=== PATIENT | female | born 1995 | race Caucasian/White ===

== ENCOUNTER 2023-12-09 08:05 | Emergency (ER) | payer MEDICAID ==
[~2023-12-09] VITALS: Ht 165.1 cm; Wt 54.4 kg
[2023-12-09 08:11] VITALS: BP 150/105; PULSE 115; RESP 20; TEMP 97.8; O2SAT 98
[2023-12-09 09:29] VITALS: BP 144/98; PULSE 99; RESP 20; TEMP 97.8; O2SAT 98
== END 2023-12-09 09:29 | disposition home or self-care (01) ==
LOC: MED 08:05
DX: M79.606 Pain in leg, unspecified (principal); R00.0 Tachycardia, unspecified; Z86.59 Personal history of other mental and behavioral disorders
CPT/HCPCS: 99283